=== PATIENT | female | born 1985 | race Caucasian/White ===

== ENCOUNTER 2024-02-04 11:45 | Emergency (ER) | payer OTHER, SELFPAY ==
[2024-02-04 11:53] VITALS: BP 136/82; PULSE 94; TEMP 37.3; O2SAT 96; BMI 28.8
--- NOTE | 2024-02-04 12:23 | US_ITS ---
The [address] [address] Patient Name: FADY RESTREPO MRN: [id number] date: 1985 Sex: F Assigned Patient Location: ER Current Patient Location: ER Accession/Order Number: [id number] Exam Date: 02/04/2024 12:24 Report Date: 02/04/2024 13:38 At the request of: IVETT MORALES Procedure: US OB transvaginal EXAMINATION: US OB transvaginal HISTORY: vaginal bleeding COMPARISON: No relevant comparison available. FINDINGS: Transabdominal and transvaginal images The uterus is normal in size, contour and myometrial echotexture. The endometrium measures 3.2 cm, with no color flow The ovaries are normal in size. The right ovary measures 2.2 x 2.0 x 1.5 cm. The left ovary measures 3.0 x 2.1 x 2.2 cm. No free fluid US/US OB transvaginal IMPRESSION: Thickened endometrium likely related to the patient's state. No evidence of retained products of conception Electronically authenticated by: DALE IBANEZ Date: 02/04/2024 13:38
[2024-02-04 12:33] LABS: Basophils Absolute Auto 0.1 10^3/uL (0.0-0.1); Basophils Percent Auto 0.7 % (0.2-2.0); Eosinophils Absolute Auto 0.3 10^3/uL (0.0-0.7); Eosinophils Percent Auto 1.8 % (0.9-7.0); Hematocrit 40.7 % (36.0-48.0); Hemoglobin 13.7 g/dL (12.0-16.0); Immature Granulocytes Abs Auto 0.04 10^3/uL (0.00-0.03); Immature Granulocytes Pct Auto 0.3 % (0.0-0.5); Lymphocytes Absolute Auto 2.9 10^3/uL (1.2-3.8); Mean Corpuscular HGB Conc 33.7 g/dL (29.9-35.2); Mean Corpuscular Hemoglobin 31.5 pg (26.7-34.0); Mean Corpuscular Volume 93.6 fL (81.0-99.0); Mean Platelet Volume 9.7 fL (9.5-13.5); Neutrophils Absolute Auto 9.6 10^3/uL (1.4-6.5); Neutrophils Percent Auto 69.2 % (43.0-75.0); Platelet Count 312 10^3/uL (150-450); Red Blood Count 4.35 10^6/uL (4.20-5.40); Red Cell Distribution Width 11.9 % (11.0-15.0); White Blood Count 13.8 10^3/uL (4.0-11.0)
[2024-02-04 13:10] LABS: Alanine Aminotransferase 30 U/L (14-59); Albumin Globulin Ratio 0.9; Albumin Level 3.5 g/dL (3.4-5.0); Alkaline Phosphatase 63 U/L (46-116); Anion Gap 15.7; Aspartate Amino Transferase 19 U/L (15-37); BUN Creatinine Ratio 8.6; Bilirubin Total 0.4 mg/dL (0.2-1.0); Calcium 9.4 mg/dL (8.5-10.1); Carbon Dioxide 22.7 mmol/L (21.0-32.0); Chloride 106 mmol/L (98-107); Estimated GFR (African America >60 (>=60 mL/min/1.73m^2); Estimated GFR (Non-African Ame >60 (>=60 mL/min/1.73m^2); Globulin 3.9 g/dL; Glucose 101 mg/dL (74-106); Potassium 4.4 mmol/L (3.5-5.1); Sodium 140 mmol/L (136-145); Total Protein 7.4 g/dL (6.4-8.2)
[2024-02-04 13:40] LABS: HCG Quantitative 60 mIU/mL
--- NOTE | 2024-02-04 13:56 | ED.FEMALEGU1 ---
HPI - Female Genitourinary General Chief complaint: OB/Uterine Contractions Stated complaint: ABDOMINAL PAIN/ VAGINAL BLEEDING Time Seen by Provider: 02/04/24 12:17 Source: patient Mode of arrival: walk-in History of Present Illness HPI Narrative: The patient delivered her baby almost 10 weeks ago is coming to us after she had a test that is positive almost few days ago, she started having some vaginal bleeding today she did not have the chance to follow-up with her OB doctor yet The patient denies any nausea vomiting or any trauma but she does have some suprapubic cramping The patient had the 6 pregnancies before one of them was miscarriage and she had 5 terms Related Data Allergies Allergy/AdvReac Type Severity Reaction Status Date / Time adhesive tape Allergy Severe Rash Verified 02/04/24 11:59 niacin Allergy Severe Hives Verified 02/04/24 11:59 Review of Systems ROS Status of ROS 10 or more systems reviewed and unremarkable except as noted in history and below Exam Narrative Exam Narrative: Nurses notes and vital signs reviewed and patient is not hypoxic. General: Well-appearing and in no apparent distress. Skin: Warm, dry, no pallor noted. No rash. Head: Normocephalic, atraumatic. Neck: Supple, non-tender. Eye: Pupils are equal, round and EOMI. No scleral icterus. Ears, Nose, Mouth, and Throat: TM are clear, no nasal mucosal hypertrophy. Oral mucosa is moist, no posterior oropharynx erythema, uvula is mid-line Cardiovascular: Regular Rate and Rhythm without murmur, gallop or rub. Respiratory: No accessory muscle use or respiratory distress. Lungs are clear to auscultation, no wheezing, rales or rhonchi Chest Wall: no tenderness Back: No midline thoracic or lumbar vertebral tenderness. No CVA tenderness Musculoskeletal: normal ROM, no calf or popliteal tenderness, no lower extremity edema/swelling GI: Abdomen is soft, non-distended. Normal bowel sounds. No masses appreciated. Subjective suprapubic discomfort, no rebound, guarding, or rigidity noted. Neurological: A&O x4. No cranial nerve dysfunction observed. No truncal ataxia. Moves all extremities. Sensation intact. Psychiatric: Cooperative and interactive. Normal mood and affect. Constitutional Vital Signs, click to edit/add: Last Vital Signs Temp 99.1 F 02/04/24 11:53 Pulse 94 H 02/04/24 11:53 Resp 16 02/04/24 11:53 BP 136/82 02/04/24 11:53 Pulse Ox 96 02/04/24 11:53 O2 Del Method Room Air 02/04/24 11:53 Course Vital Signs Vital signs: Vital Signs Temperature 99.1 F 02/04/24 11:53 Pulse Rate 94 H 02/04/24 11:53 Respiratory Rate 16 02/04/24 11:53 Blood Pressure 136/82 02/04/24 11:53 Pulse Oximetry 96 02/04/24 11:53 Oxygen Delivery Method Room Air 02/04/24 11:53 Temperature 99.1 F 02/04/24 11:53 Pulse Rate 94 H 02/04/24 11:53 Respiratory Rate 16 02/04/24 11:53 Blood Pressure 136/82 02/04/24 11:53 Pulse Oximetry 96 02/04/24 11:53 Oxygen Delivery Method Room Air 02/04/24 11:53 MDM - Female Genitourinary MDM Narrative Medical decision making narrative: The patient is a negative and her CBC and chemistry showed no acute pathology Ultrasound of the transvaginal showed no intrauterine and the patient could be having thickened endometrial secondary to changes The patient case was discussed with Dr. Song and he recommended the patient have the test repeated after 2 days Right now the patient does not need any RhoGAM secondary to the fact that she have recently had delivered her baby and she will be covered by the recent injection Patient had the plan had the plan explained to her and she agreed with the above plan of repeating the test and she will come back to the ER in case she could not repeated with the OB doctor The patient is to follow up with primary care physician in next 2-3 days or to return to the emergency department should any of the signs or symptoms worsen or new symptoms develop. The patient agrees with the following Diagnosis and Treatment plan and the patient will be discharged home. Lab Data Labs: Lab Results 02/04/24 Range/Units 12:26 WBC 13.8 H (4.0-11.0) 10^3/uL RBC 4.35 (4.20-5.40) 10^6/uL Hgb 13.7 (12.0-16.0) g/dL Hct 40.7 (36.0-48.0) % MCV 93.6 (81.0-99.0) fL MCH 31.5 (26.7-34.0) pg MCHC 33.7 (29.9-35.2) g/dL RDW 11.9 (11.0-15.0) % Plt Count 312 (150-450) 10^3/uL MPV 9.7 (9.5-13.5) fL Neut % (Auto) 69.2 (43.0-75.0) % Lymph % (Auto) 21.0 (20.5-60.0) % [place] % (Auto) 7.0 (1.7-12.0) % Eos % (Auto) 1.8 (0.9-7.0) % Baso % (Auto) 0.7 (0.2-2.0) % Neut # (Auto) 9.6 H (1.4-6.5) 10^3/uL Lymph # (Auto) 2.9 (1.2-3.8) 10^3/uL [place] # (Auto) 1.0 H (0.3-0.8) 10^3/uL Eos # (Auto) 0.3 (0.0-0.7) 10^3/uL Baso # (Auto) 0.1 (0.0-0.1) 10^3/uL Abs Immat Gran (auto) 0.04 H (0.00-0.03) 10^3/uL Imm/Tot Granulo (auto) 0.3 (0.0-0.5) % Sodium 140 (136-145) mmol/L Potassium 4.4 (3.5-5.1) mmol/L Chloride 106 (98-107) mmol/L Carbon Dioxide 22.7 (21.0-32.0) mmol/L Anion Gap 15.7 BUN 6.0 L (7.0-18.0) mg/dL Creatinine 0.70 (0.55-1.02) mg/dL Est GFR ( Amer) >60 (>=60 mL/min/1.73m^2) Est GFR (Non-Af Amer) >60 (>=60 mL/min/1.73m^2) BUN/Creatinine Ratio 8.6 Glucose 101 (74-106) mg/dL Calcium 9.4 (8.5-10.1) mg/dL Total Bilirubin 0.4 (0.2-1.0) mg/dL AST 19 (15-37) U/L ALT 30 (14-59) U/L Alkaline Phosphatase 63 (46-116) U/L Total Protein 7.4 (6.4-8.2) g/dL Albumin 3.5 (3.4-5.0) g/dL Globulin 3.9 g/dL Albumin/Globulin Ratio 0.9 HCG, Quant 60 mIU/mL Blood Type A Negative Antibody Screen Negative Discharge Plan Discharge Chief Complaint: OB/Uterine Contractions Clinical Impression: Abnormal vaginal bleeding Patient Disposition: Home, Self-Care Time of Disposition Decision: 13:55 Condition: Good Print Language: Serbian Instructions: Non-Threatening First Trimester Vaginal Bleed (ED) Referrals: Physician,Non-Staff, MD [Primary Care Provider] - 1 week
== END 2024-02-04 14:20 | disposition home or self-care (01) ==
PROVIDERS: Emergency Provider Emergency Medicine
DX: N93.9 Abnormal uterine and vaginal bleeding, unspecified (principal)
CPT/HCPCS: 36415; 76817; 80053; 84702; 85025; 86850; 86900; 86901; 99284